=== PATIENT | female | born 1965 | race Caucasian/White ===

== ENCOUNTER 2016-10-24 19:16 | Emergency (ER) | payer BC ==
--- NOTE | ~2016-10-24 | ER ---
[facility] AGE[facility] 51 Y [address] ROOM: [place] [id number] LOCATION: ED ADMIT DATE: 10/24/2016 ER/Outpatient Report DISCHARGE DATE: 10/24/2016 FAMILY PHYSICIAN: Travis Mi MD ATTENDING PHYSICIAN: Mague Campuzano Time of Arrival: 1929 hours. Time of Evaluation: 1939 hours. CHIEF COMPLAINT: Left-sided neck and shoulder pain. HISTORY OF PRESENT ILLNESS: The patient states that she began having left-sided neck and shoulder pain yesterday. She states the pain starts at the base of her skull and goes all the way down into her left shoulder. She states she has had pain like this before, but it has never lasted this long. She denies having any kind of injury, has not felt short of breath, has not had any chest discomfort, is not dizzy or lightheaded. She states she has taken some home medications to try and calm things down, but they have not helped, last was some Flexeril at about 5 o'clock this evening. ALLERGIES: NO KNOWN ALLERGIES. CURRENT MEDICATIONS: On the chart and reviewed by me. PAST MEDICAL HISTORY: Hypothyroidism and elevated cholesterol. PAST SURGICAL HISTORY: Cholecystectomy and endometrial ablation. SOCIAL HISTORY: She presents to the ER accompanied by her . Dr. Mi is her primary provider. She denies the use of tobacco, drugs, or alcohol. REVIEW OF SYSTEMS: Negative other than those mentioned in the HPI. PHYSICAL EXAMINATION: VITAL SIGNS: She weighs 67 kg. Blood pressure is 127/70, pulse of 90, respirations 16, temperature of 97.9 tympanic, O2 saturation was 93% on room air. [facility] AGE: 51 Y [address] ROOM: [place], [place] [id number] LOCATION: ED ADMIT DATE: 10/24/2016 ER/Outpatient Report DISCHARGE DATE: 10/24/2016 FAMILY PHYSICIAN: Travis Mi MD ATTENDING PHYSICIAN: Mague Campuzano GENERAL: She is awake, alert, and oriented x4. SKIN: [place], warm, and dry. RESPIRATIONS: Even and nonlabored. Lung sounds are clear throughout. HEART: Regular rate and rhythm. EXTREMITIES: The patient moves all extremities strongly and equally. She does have discomfort when you palpate along the left paraspinal column area. She has good peripheral pulses on the left. No peripheral edema of the left arm. She has good sensation to the left arm and good use of the left arm. EMERGENCY ROOM COURSE: Saline lock was initiated. She was given Valium 2 mg IV and monitored. Vital signs remained stable. She states that she did get some relief initially with the Valium. It was repeated at 2 mg IV. She states the pain has gone from 10 to an 8. After the second dose, it gone down to a 4. She states she would like to go home. IMPRESSION: Muscle spasm in the neck area. PLAN: Home, rest. Ice or heat to the sore area. She does have Flexeril at home to take as needed. If her symptoms persist or worsen, she is to follow up with her primary provider. Her and her verbalized understanding. BAM MELENDEZ APRN FOR MD JOSETTE ALVARADO/ailin /[id number] d: 10/24/166 t: 10/26/161936, OUTPATIENT REPORT
== END 2016-10-24 20:23 | disposition disaster alternative care site (69) ==
LOC: GMED 19:16
DX: M62.838 Other muscle spasm (principal); E03.9 Hypothyroidism, unspecified; E78.00 Pure hypercholesterolemia, unspecified; Z90.49 Acquired absence of other specified parts of digestive tract; Z79.02 Long term (current) use of antithrombotics/antiplatelets; Z79.899 Other long term (current) drug therapy
CPT/HCPCS: J3360